=== PATIENT | female | born 1965 | race Caucasian/White ===

== ENCOUNTER 2019-09-24 22:10 | Emergency (ER) | payer MEDICAID ==
[~2019-09-24] VITALS: Ht 160 cm; Wt 81.6 kg
[2019-09-24 22:10] VITALS: BP_SYST 96
--- NOTE | 2019-09-24 22:10 | NUR ---
Pt brought in by ambulance. Pt awake, alert, oriented x4. pt lethargic at time of presentation. EMS states that patient was found unresponsive in home prior to EMS activation after last known well time of 1999. Pt blood sugar was 50 on scene, other vitals were stable. Pt was given D10% en route with increase in LOC prior to arrival. Pt now denies any chest pain, nausea, vomiting, diarrhea, shortness of breath. Pt denies any other medical complaint at this time. VSS, pt resting in ED bed.
--- NOTE | 2019-09-24 22:10 | NUR ---
2155- Pt alfred from home to bed for evaluation
--- NOTE | 2019-09-24 22:40 | NUR ---
Pt resting in ED bed. Awake, alert, oriented. Pt states she has unclear recollection of events, but now feeling better, more alert.
--- NOTE | 2019-09-24 23:17 | NUR ---
Pt moved to bed 2, hooked to cont monitor
[2019-09-24 23:31] LABS: BASOPHILS # (AUTO) 0.2 K/uL (0.0-0.2); BASOPHILS % (AUTO) 1.5 % (0.0-2.0); EOSINOPHILS # (AUTO) 0.2 K/uL (0.0-0.4); EOSINOPHILS % (AUTO) 1.7 % (0.0-4.0); HEMATOCRIT 30.2 % (36-48); LYMPHOCYTES # (AUTO) 1.6 K/uL (1.0-5.5); LYMPHOCYTES % (AUTO) 14.6 % (20.5-51.5); MEAN CORPUSCULAR HEMOGLOBIN 34 pg (27-31); MEAN CORPUSCULAR HGB CONC 33 % (32-36); MEAN CORPUSCULAR VOLUME 103 fL (79.0-98.0); MONOCYTES # (AUTO) 0.8 K/uL (0.0-1.0); MONOCYTES % (AUTO) 7.1 % (1.7-9.3); NEUTROPHILS % (AUTO) 75.1 % (40.0-70.0); PLATELET COUNT (AUTO) 397 K/uL (130-430); RED BLOOD CELL COUNT(AUTO) 2.94 MIL/uL (4.2-6.2); RED CELL DISTRIBUTION WIDTH 16.4 % (9.0-15.0); WHITE BLOOD COUNT (AUTO) 10.7 K/uL (4.8-10.8)
[2019-09-24 23:34] LABS: CALCIUM 8.6 mg/dL (8.4-11.0); CREATININE 1.33 mg/dL (0.55-1.30); POTASSIUM 4.2 mmol/L (3.5-5.1)
[2019-09-24 23:43] LABS: ALBUMIN 2.3 g/dL (3.4-4.8); TOTAL BILIRUBIN 0.3 mg/dL (0.0-1.0)
--- NOTE | 2019-09-25 00:15 | NUR ---
Pt Resting in Ed bed with family member bedside. Pt tolerating IV Fluids well.
--- NOTE | 2019-09-25 00:50 | NUR ---
Pt Given Lunch tray with lunch meats and complex carbohydrates per . Pt able to feed self, no contraindications to diet.
[2019-09-25] MEDS: D10W 250 ML IV SCH ×2 (00:57→00:58)
[2019-09-25 01:05] LABS: BILIRUBIN,URINE NEGATIVE (NEGATIVE); BLOOD, URINE NEGATIVE (NEGATIVE); CLARITY/URINE CLEAR (CLEAR); COLOR,URINE YELLOW (YELLOW); GLUCOSE,URINE NEGATIVE (NEGATIVE); KETONES,URINE NEGATIVE (NEGATIVE); LEUKOCYTE ESTERASE ,URINE TRACE (NEGATIVE); NITRITE, URINE NEGATIVE (NEGATIVE); PROTEIN URINE NEGATIVE (NEGATIVE); UROBILINOGEN,URINE 0.2 (0.2-1.0)
[2019-09-25 01:18] LABS: BACTERIA,URINE FEW /HPF (None Seen); RBC,URINE 0-3 /HPF (0-3)
--- NOTE | 2019-09-25 01:21 | NUR ---
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
[2019-09-25] MEDS ORDERED: CEPHALEXIN 500 MG CAPSULE PO ONE (01:30)
[2019-09-25 01:40] VITALS: BP_SYST 122
== END 2019-09-25 01:40 | disposition home or self-care (01) ==
LOC: SED 22:10
DX: E11.649 Type 2 diabetes mellitus with hypoglycemia without coma (principal); N39.0 Urinary tract infection, site not specified; I10 Essential (primary) hypertension; Z86.73 Personal history of transient ischemic attack (TIA), and cerebral infarction without residual deficits; E87.6 Hypokalemia
CPT/HCPCS: 36415; 80053; 81000-TC; 84484; 85025; 96365; 99284

== ENCOUNTER 2019-12-17 16:28 | Emergency (ER) | payer MEDICAID ==
[~2019-12-17] VITALS: Ht 160 cm; Wt 73.0 kg
[2019-12-17 16:35] VITALS: BP_SYST 109
--- NOTE | 2019-12-17 16:40 | NUR ---
Placed in room 7 . Placed on equipment monitor phototypesetting, blood pressure machine and pulse oximeter. To gown for exam. Side rails up. Addendum: 12/17/19 at 1741 by [email or web address] Amendment undone in EDM - 12/17/19 at 1743 by [email or web address] Correction. L knee pain Addendum: 12/17/19 at 1744 by [email or web address] Correction. L knee pain and swelling.
--- NOTE | 2019-12-17 16:45 | NUR ---
Patient to ER bed 7 to gown for evaluation. Side rails up. Report given to Mac MASSEY.
--- NOTE | 2019-12-17 16:47 | NUR ---
Pt presents to the ER for R knee pain x 4 weeks. Pt has R knee swelling, hx of RA. Pt has not taken any pain medication. Pt rates 05/06. Addendum: 12/17/19 at 1745 by [email or web address] Correction. Left knee pain and swelling
--- NOTE | 2019-12-17 16:50 | NUR ---
ER at bedside examining patient.
[2019-12-17] MEDS ORDERED: KETOROLAC TROMETHAMINE 60 MG/2 ML VIAL IM ONE (17:00)
[2019-12-17 17:36] LABS: BASOPHILS # (AUTO) 0.1 K/uL (0.0-0.2); BASOPHILS % (AUTO) 1.1 % (0.0-2.0); EOSINOPHILS # (AUTO) 0.7 K/uL (0.0-0.4); EOSINOPHILS % (AUTO) 5.7 % (0.0-4.0); HEMATOCRIT 32.8 % (36-48); HEMOGLOBIN 10.6 g/dL (12.0-16.0); LYMPHOCYTES # (AUTO) 1.9 K/uL (1.0-5.5); LYMPHOCYTES % (AUTO) 16.6 % (20.5-51.5); MEAN CORPUSCULAR HEMOGLOBIN 31 pg (27-31); MEAN CORPUSCULAR HGB CONC 32 % (32-36); MEAN CORPUSCULAR VOLUME 96 fL (79.0-98.0); MONOCYTES # (AUTO) 0.6 K/uL (0.0-1.0); MONOCYTES % (AUTO) 5.1 % (1.7-9.3); NEUTROPHILS # (AUTO) 8.3 K/uL (1.8-7.7); NEUTROPHILS % (AUTO) 71.5 % (40.0-70.0); PLATELET COUNT (AUTO) 220 K/uL (130-430); RED CELL DISTRIBUTION WIDTH 15.3 % (9.0-15.0); WHITE BLOOD COUNT (AUTO) 11.6 K/uL (4.8-10.8)
[2019-12-17 17:42] LABS: CALCIUM 9.5 mg/dL (8.4-11.0); CREATININE 1.19 mg/dL (0.55-1.30); POTASSIUM 4.6 mmol/L (3.5-5.1)
[2019-12-17 17:46] LABS: ALBUMIN 3.3 g/dL (3.4-4.8); C-REACTIVE PROTEIN QUANT 7.1 mg/dL (0-0.5); PROTHROMBIN TIME 10.3 SECS (9.5-12.5); TOTAL BILIRUBIN 0.3 mg/dL (0.0-1.0); URIC ACID 8.2 mg/dL (2.4-7.0)
--- NOTE | 2019-12-17 17:52 | NUR ---
system technologist at bedside.
[2019-12-17] MEDS ORDERED: MORPHINE SULFATE 10 MG/ML VIAL IM ONE (18:00)
[2019-12-17] MEDS ORDERED: ONDANSETRON 4 MG ODT TAB PO ONE (18:00)
--- NOTE | 2019-12-17 18:15 | NUR ---
health care sanitary technician at bedside.
[2019-12-17 18:29] LABS: ERYTHROCYTE SEDIMENTATION RATE 81 MM/HR (0-20)
--- NOTE | 2019-12-17 18:30 | NUR ---
ER Dr. TRAN at bedside, procedure of knee fluid aspiration. Asceptic technique used. MELVINA Goetz applied bacitrin to the knee and sterile gauze placed. Patient tolerated well. Given Morphine 10mg/ml prior to procedure.
--- NOTE | 2019-12-17 19:10 | NUR ---
Report given to BRYSON Rajput for continuation of care.
--- NOTE | 2019-12-17 19:10 | NUR ---
ASSUMED CARE OF PT. PT AWAITING RESULTS AND DISPOSITION.
--- NOTE | 2019-12-17 19:15 | NUR ---
PT REPORTS IMPROVED PAIN LEVEL STATED "IT IS GETTING BETTER" REPORTS 7/10 PAIN SCALE AND REPORTS PAIN "TOLERABLE."
[2019-12-17 19:41] LABS: BF APPEARANCE UNSPUN HAZY (CLEAR); BODY FLUID COLOR PINK (LT YELLOW); BODY FLUID TOTAL VOLUME 15 mL; RBC, BODY FLUID 2216 /uL; SOURCE/TYPE ,BODY FLUID SYNOVIAL; WBC, BODY FLUID 2003 /uL
[2019-12-17 19:42] LABS: LYMPHOCYTES, BODY FLUID 22 %; NEUTROPHIL, BODY FLUID 78 %
[2019-12-17 19:44] LABS: BODY FLUID CRYSTALS NO CRYSTALS SEEN (None Seen)
[2019-12-17 20:30] VITALS: BP_SYST 109
--- NOTE | 2019-12-17 20:30 | NUR ---
Patient given written and verbal discharge instructions and verbalizes understanding. DR. REAGAN JIMENEZ MD discussed with patient the results and treatment provided. Patient in stable condition. ID arm band removed. Rx of given. Patient educated on pain management and to follow up with PMD. Pain Scale 2/10. Opportunity for questions provided and answered. Medication side effect fact sheet provided.
== END 2019-12-17 20:30 | disposition home or self-care (01) ==
LOC: SED 16:28
DX: M25.462 Effusion, left knee (principal); I10 Essential (primary) hypertension; E11.9 Type 2 diabetes mellitus without complications; E07.9 Disorder of thyroid, unspecified; I25.2 Old myocardial infarction; E87.6 Hypokalemia
CPT/HCPCS: 20611; 36415; 73560; 76882; 80053; 81025; 82947; 84157 ×2; 84550; 84703; 85025; 85610; 85651; 85730; 86140; 87070; 89051 ×2; 89060; 96372; 99285; J1885; J2270; Q0162; 87205-TC

== ENCOUNTER 2020-04-14 17:45 | Emergency (ER) | payer MEDICAID ==
[~2020-04-14] VITALS: Ht 160 cm; Wt 72.6 kg
[2020-04-14 18:13] VITALS: BP_SYST 116
[2020-04-14] MEDS ORDERED: MORPHINE 2 MG/ML INJ. SYRINGE IM ONE (19:00)
[2020-04-14 20:42] VITALS: BP_SYST 116
== END 2020-04-14 20:30 | disposition home or self-care (01) ==
LOC: SED 17:45
DX: M25.562 Pain in left knee (principal); M25.561 Pain in right knee; I10 Essential (primary) hypertension; E11.9 Type 2 diabetes mellitus without complications; E07.9 Disorder of thyroid, unspecified; E87.6 Hypokalemia; Z87.891 Personal history of nicotine dependence
CPT/HCPCS: 73130; 73564; 96372; 99284; J2270

== ENCOUNTER 2022-01-07 10:00 | Outpatient (CLI) | payer MEDICAID ==
[~2022-01-07] VITALS: Ht 160 cm; Wt 77.1 kg
[2022-01-07 05:30] VITALS: BP_SYST 128
[2022-01-07 07:29] LABS: BILIRUBIN,URINE NEGATIVE (NEGATIVE); COLOR,URINE YELLOW (YELLOW); GLUCOSE,URINE NEGATIVE (NEGATIVE); KETONES,URINE NEGATIVE (NEGATIVE); LEUKOCYTE ESTERASE ,URINE 1+ (NEGATIVE); NITRITE, URINE NEGATIVE (NEGATIVE); PROTEIN URINE 2+ (NEGATIVE); UROBILINOGEN,URINE 0.2 (0.2-1.0)
[2022-01-07 07:34] LABS: BLOOD, URINE TRACE (NEGATIVE); CLARITY/URINE HAZY (CLEAR)
[2022-01-07 08:13] LABS: BACTERIA,URINE MODERATE /HPF (None Seen)
[~2022-01-07 10:00] MED LIST: ACETAMINOPHEN 325 MG TABLET PO PRN; ASPI-1393 PO; BACL10TA PO; BENA-6 PO; BISACODYL 10 MG/SUPPOSITORY RC PRN; BUPIVACAINE LIPOSOME/PF 266 MG/20 ML VIAL INFIL ONE; CARV12.548 PO; CARV6.2554 PO; CYCL10TA24 PO; D5/0.45 NS 1,000 ML IV ONE; FOLI-43 PO; GLIM1TAB18 PO; HYDR12.55 PO; HYDROcodone/ACETAMIN 7.5-325 MG TAB PO PRN; LEVO75TA7 PO; LIP40 PO; LIP80 PO; LISI20TA30 PO; LOP600 PO; LOSA25TA3 PO; METF-379 PO; METF-381 PO; MORPHINE SULFATE 10 MG/ML VIAL IM PRN; NEU300 PO; NOR10 PO; OMEP20CA15 PO; OMEP20TA20 PO; OXYC10TA56 PO; TEMA30CA5 PO; TOFA11TA PO; TRAM100T25 PO
[2022-01-07] MEDS ORDERED: CEFAZOLIN 1 GM IVPB PREMIX 50 ML IV SCH (16:00)
[2022-01-08] MEDS ORDERED: RIVAROXABAN 10 MG TABLET PO SCH (09:00)
== END 2022-01-07 11:00 | disposition home or self-care (01) ==
LOC: SLB 10:00
PROVIDERS: ATTEND Orthopaedic Surgery
DX: Z01.818 Encounter for other preprocedural examination (principal); M17.0 Bilateral primary osteoarthritis of knee; Z20.822 Contact with and (suspected) exposure to COVID-19; M41.34 Thoracogenic scoliosis, thoracic region; I10 Essential (primary) hypertension; E78.5 Hyperlipidemia, unspecified; I25.2 Old myocardial infarction; N39.0 Urinary tract infection, site not specified; M19.079 Primary osteoarthritis, unspecified ankle and foot; M19.049 Primary osteoarthritis, unspecified hand; E11.9 Type 2 diabetes mellitus without complications; E03.9 Hypothyroidism, unspecified; M41.84 Other forms of scoliosis, thoracic region; Z87.891 Personal history of nicotine dependence
CPT/HCPCS: 36415 ×2; 71046; 81000; 82962; 87081; 87086; 87426; U0003; C9290; J0690

== ENCOUNTER 2022-02-04 05:30 | Inpatient (IN) | payer MEDICAID ==
[~2022-02-04] VITALS: Ht 160 cm; Wt 75.7 kg
[~2022-02-04 05:30] MED LIST changes: -ACETAMINOPHEN 325 MG TABLET PO PRN; -BISACODYL 10 MG/SUPPOSITORY RC PRN; -BUPIVACAINE LIPOSOME/PF 266 MG/20 ML VIAL INFIL ONE; -D5/0.45 NS 1,000 ML IV ONE; -HYDROcodone/ACETAMIN 7.5-325 MG TAB PO PRN; -MORPHINE SULFATE 10 MG/ML VIAL IM PRN
[2022-02-04 06:04] LABS: BILIRUBIN,URINE NEGATIVE (NEGATIVE); CLARITY/URINE CLEAR (CLEAR); COLOR,URINE YELLOW (YELLOW); GLUCOSE,URINE NEGATIVE (NEGATIVE); KETONES,URINE TRACE (NEGATIVE); LEUKOCYTE ESTERASE ,URINE 2+ (NEGATIVE); NITRITE, URINE NEGATIVE (NEGATIVE); PH,URINE 5.5 (5.0-8.0); PROTEIN URINE 2+ (NEGATIVE); UROBILINOGEN,URINE 0.2 (0.2-1.0)
[2022-02-04 06:09] LABS: BLOOD, URINE TRACE (NEGATIVE)
[2022-02-04 06:28] LABS: BACTERIA,URINE FEW /HPF (None Seen); RBC,URINE >100 /HPF (0-3); URINE SULFO SALICYLIC ACID NEGATIVE (NEGATIVE); WBC,URINE >100 /HPF (0-3)
[2022-02-04 06:29] LABS: MUCUS,URINE 2+ /LPF (None Seen)
== END 2022-02-04 13:18 | disposition home or self-care (01) | DRG 351 ==
LOC: SMU 05:30
PROVIDERS: ADMIT Orthopaedic Surgery; ATTEND Orthopaedic Surgery
DX: M17.12 Unilateral primary osteoarthritis, left knee (principal); F17.200 Nicotine dependence, unspecified, uncomplicated; M06.9 Rheumatoid arthritis, unspecified; Z96.659 Presence of unspecified artificial knee joint; G89.29 Other chronic pain; Z20.822 Contact with and (suspected) exposure to COVID-19; M25.561 Pain in right knee; Z79.899 Other long term (current) drug therapy
CPT/HCPCS: 36415; 81000; 87081; 87086; U0003

== ENCOUNTER 2022-10-26 22:27 | Emergency (ER) | payer MEDICAID ==
[~2022-10-26] VITALS: Ht 160 cm; Wt 71.7 kg
[~2022-10-26 22:27] MED LIST changes: +FAMO-132 PO; +ONDA-8 TL; +SIME125T69 PO; +SUCR1TAB2 PO
[2022-10-26 23:20] VITALS: BP_SYST 98
--- NOTE | 2022-10-26 23:20 | NUR ---
Triaged and placed patient to ER HALLWAY 2 for evaluation. Report given to HAKEEM RN for continuity of care. Bed placed in lowest position with side rails up. Instructed to notify ED staff for any changes in condition or worsening of symptoms while waiting to be seen by a provider. Patient verbalized understanding.
[2022-10-27] MEDS ORDERED: LOPERAMIDE HCL 2 MG CAPSULE PO ONE
[2022-10-27] MEDS ORDERED: NACL 0.9% 1,000 ML IV ONE
[2022-10-27 00:01] LABS: BASOPHILS % (AUTO) 0.7 % (0.0-2.0); EOSINOPHILS # (AUTO) 0.1 K/uL (0.0-0.4); HEMOGLOBIN 8.9 g/dL (12.0-16.0); LYMPHOCYTES # (AUTO) 1.6 K/uL (1.0-5.5); LYMPHOCYTES % (AUTO) 29.6 % (20.5-51.5); MEAN CORPUSCULAR HEMOGLOBIN 32 pg (27-31); MEAN CORPUSCULAR HGB CONC 34 % (32-36); MEAN CORPUSCULAR VOLUME 92 fL (79.0-98.0); MONOCYTES # (AUTO) 0.6 K/uL (0.0-1.0); MONOCYTES % (AUTO) 11.5 % (1.7-9.3); NEUTROPHILS % (AUTO) 56.2 % (40.0-70.0); PLATELET COUNT (AUTO) 208 K/uL (130-430); RED BLOOD CELL COUNT(AUTO) 2.82 MIL/uL (4.2-6.2); RED CELL DISTRIBUTION WIDTH 14.4 % (9.0-15.0); WHITE BLOOD COUNT (AUTO) 5.3 K/uL (4.8-10.8)
[2022-10-27 00:15] LABS: CALCIUM 8.4 mg/dL (8.4-11.0)
[2022-10-27 00:20] LABS: CREATININE 2.01 mg/dL (0.55-1.30); TOTAL BILIRUBIN 0.2 mg/dL (0.0-1.0)
[2022-10-27] MEDS ORDERED: KCL 20 mEq in 100 mL (PREMIX) 100 ML IV ONE (00:45)
[2022-10-27] MEDS ORDERED: POTASSIUM CHLORIDE 20 MEQ/PKT PACKET PO ONE (00:45)
--- NOTE | 2022-10-27 00:45 | NUR ---
# 20 gauge angiocath placed to RFA. Use of asceptic technique. Opsite placed over site. Blood return noted. Flushed with 10 cc of normal saline. No evidence of infiltration noted. Patient tolerated well.
[2022-10-27] MEDS ORDERED: MORPHINE 4 MG INJ. 4 MG/ML VIAL IVP ONE (01:15)
[2022-10-27] MEDS ORDERED: ONDANSETRON HCL 4 MG/2 ML VIAL IVP ONE (01:15)
--- NOTE | 2022-10-27 01:15 | NUR ---
ER Dr. DUNHAM at bedside examining patient.
--- NOTE | 2022-10-27 01:30 | NUR ---
PT IS AA&OX4. AFEBRILE. NAD. B & B CONTINENT. C/O DIARRHEA LOOSE WATERY STOOL X 1 WK NOW. LAST TIME PT TOOK IMMODIUM WAS YESTERDAY. AMBULATORY W/ STEADY GAIT. SAFE & HAZARD FREE ENVIRONMENT PROVIDED.
[2022-10-27] MEDS ORDERED: OXYC-128 PO (02:59)
[2022-10-27] MEDS ORDERED: LOPE2CAP PO (02:59)
[2022-10-27] MEDS ORDERED: AUG875 PO (02:59)
[2022-10-27] MEDS ORDERED: DICY10CA13 PO (02:59)
[2022-10-27] MEDS ORDERED: AMOXICILLIN/POTASSIUM CLAV 875 MG TABLET PO ONE (03:00)
--- NOTE | 2022-10-27 04:00 | NUR ---
Patient given written and verbal discharge instructions and verbalizes understanding. ER MD discussed with patient the results and treatment provided. Patient in stable condition. ID arm band removed. IV catheter removed intact and dressing applied, no active bleeding. Rx of AUGMENTIN, DICYCLOMINE, LOPERAMIDE, PERCOCEENT, KDUR given. Patient educated on pain management and to follow up with PMD. Pain Scale 0/10. Opportunity for questions provided and answered. Medication side effect fact sheet provided.
[2022-10-27 04:01] VITALS: BP_SYST 133
[2022-10-27] MEDS ORDERED: POTA-197 PO (04:08)
== END 2022-10-27 04:00 | disposition home or self-care (01) ==
LOC: SED 22:27
DX: K57.92 Diverticulitis of intestine, part unspecified, without perforation or abscess without bleeding (principal); K52.9 Noninfective gastroenteritis and colitis, unspecified; D64.9 Anemia, unspecified; E87.6 Hypokalemia; N17.9 Acute kidney failure, unspecified; N28.1 Cyst of kidney, acquired; D35.01 Benign neoplasm of right adrenal gland; M47.896 Other spondylosis, lumbar region; E11.9 Type 2 diabetes mellitus without complications; I10 Essential (primary) hypertension; Z79.899 Other long term (current) drug therapy
CPT/HCPCS: 99285; 80053; 83690; 85025; 36415; 74176; 96365; 96375; 96361; 96366; 76376; J2405; J3480; J2270; J7030

== ENCOUNTER 2022-11-12 13:17 | Emergency (ER) | payer MEDICAID ==
[~2022-11-12] VITALS: Ht 160 cm; Wt 74.4 kg
[~2022-11-12 13:17] MED LIST changes: +AUG875 PO; +DICY10CA13 PO; +LOPE2CAP PO; +OXYC-128 PO; +POTA-197 PO
[2022-11-12 13:59] VITALS: BP_SYST 157
--- NOTE | 2022-11-12 16:30 | NUR ---
Patient to [facility] for evaluation.
--- NOTE | 2022-11-12 16:35 | NUR ---
PATIENT BROUGHT IN BY SELF COMPLAINING OF BLOODY DIARRHEA WITH LLQ ABDOMINAL PAIN. PAIN 4/10
--- NOTE | 2022-11-12 16:44 | NUR ---
ER at bedside examining patient.
[2022-11-12] MEDS ORDERED: metroNIDAZOLE 500 mg/NS 100 ML IV ONE (16:45)
[2022-11-12] MEDS ORDERED: NACL 0.9% 1,000 ML IV ONE (16:45)
--- NOTE | 2022-11-12 17:00 | NUR ---
Blood cultures drawn, prior to administration of antibiotic.
[2022-11-12 17:27] LABS: HEMATOCRIT 33.3 % (36-48); HEMOGLOBIN 11.1 g/dL (12.0-16.0); LYMPHOCYTES % (AUTO) 16.7 % (20.5-51.5); RED BLOOD CELL COUNT(AUTO) 3.55 MIL/uL (4.2-6.2)
[2022-11-12 17:33] LABS: CREATININE 1.62 mg/dL (0.55-1.30)
[2022-11-12 17:38] LABS: BASOPHILS # (AUTO) 0.2 K/uL (0.0-0.2); BASOPHILS % (AUTO) 1.4 % (0.0-2.0); EOSINOPHILS % (AUTO) 7.8 % (0.0-4.0); LYMPHOCYTES # (AUTO) 2.2 K/uL (1.0-5.5); MEAN CORPUSCULAR HEMOGLOBIN 31 pg (27-31); MEAN CORPUSCULAR HGB CONC 33 % (32-36); MEAN CORPUSCULAR VOLUME 94 fL (79.0-98.0); MONOCYTES # (AUTO) 0.6 K/uL (0.0-1.0); MONOCYTES % (AUTO) 4.4 % (1.7-9.3); NEUTROPHILS # (AUTO) 9.2 K/uL (1.8-7.7); NEUTROPHILS % (AUTO) 69.7 % (40.0-70.0); PLATELET COUNT (AUTO) 282 K/uL (130-430); WHITE BLOOD COUNT (AUTO) 13.2 K/uL (4.8-10.8)
[2022-11-12 17:40] LABS: TOTAL BILIRUBIN 0.3 mg/dL (0.0-1.0)
--- NOTE | 2022-11-12 17:50 | NUR ---
# 20 gauge angiocath placed to LAC. Use of asceptic technique. Opsite placed over site. Blood return noted. Flushed with 10 cc of normal saline. No evidence of infiltration noted. Patient tolerated well.
--- NOTE | 2022-11-12 18:32 | NUR ---
PATIENT OUT OF BED TO RESTROOM. AMBULATING WITH STEADY GAIT.
[2022-11-12] MEDS ORDERED: METR-154 PO (20:08)
[2022-11-12] MEDS ORDERED: LEVO750T64 PO (20:08)
--- NOTE | 2022-11-12 21:34 | NUR ---
Patient given written and verbal discharge instructions by DR Soliman and verbalizes understanding. ER MD discussed with patient the results and treatment provided. Patient in stable condition. ID arm band removed. IV catheter removed intact and dressing applied, no active bleeding. Rx of Levaquin,Metronidazole given. Patient educated on pain management and to follow up with PMD. Pain Scale 0/10. Opportunity for questions provided and answered. Medication side effect fact sheet provided.
[2022-11-12 21:36] VITALS: BP_SYST 148
== END 2022-11-12 21:36 | disposition home or self-care (01) ==
LOC: SED 13:17
DX: K52.9 Noninfective gastroenteritis and colitis, unspecified (principal); R10.32 Left lower quadrant pain; E11.9 Type 2 diabetes mellitus without complications; I10 Essential (primary) hypertension; Z79.899 Other long term (current) drug therapy
CPT/HCPCS: 99284; 96365; 96367; 96361; 80053; 85025; 87040; 36415; J1956; J3490; J7030

== ENCOUNTER 2022-11-29 10:05 | Emergency (ER) | payer MEDICAID ==
[~2022-11-29] VITALS: Ht 160 cm; Wt 81.6 kg
[2022-11-29 10:05] VITALS: BP_SYST 133
[~2022-11-29 10:05] MED LIST changes: +LEVO750T64 PO; +METR-154 PO
[2022-11-29 10:55] LABS: BASOPHILS # (AUTO) 0.1 K/uL (0.0-0.2); BASOPHILS % (AUTO) 0.9 % (0.0-2.0); EOSINOPHILS # (AUTO) 0.3 K/uL (0.0-0.4); EOSINOPHILS % (AUTO) 5.6 % (0.0-4.0); HEMATOCRIT 31.6 % (36-48); HEMOGLOBIN 10.5 g/dL (12.0-16.0); LYMPHOCYTES # (AUTO) 2.4 K/uL (1.0-5.5); LYMPHOCYTES % (AUTO) 38.1 % (20.5-51.5); MEAN CORPUSCULAR HEMOGLOBIN 32 pg (27-31); MEAN CORPUSCULAR HGB CONC 33 % (32-36); MEAN CORPUSCULAR VOLUME 95 fL (79.0-98.0); MONOCYTES # (AUTO) 0.6 K/uL (0.0-1.0); MONOCYTES % (AUTO) 9.9 % (1.7-9.3); NEUTROPHILS # (AUTO) 2.8 K/uL (1.8-7.7); NEUTROPHILS % (AUTO) 45.5 % (40.0-70.0); PLATELET COUNT (AUTO) 213 K/uL (130-430); RED BLOOD CELL COUNT(AUTO) 3.32 MIL/uL (4.2-6.2); RED CELL DISTRIBUTION WIDTH 15.6 % (9.0-15.0); WHITE BLOOD COUNT (AUTO) 6.2 K/uL (4.8-10.8)
[2022-11-29 11:11] LABS: ANION GAP 11 (5-15); CALCIUM 8.8 mg/dL (8.4-11.0); CHLORIDE 101 mmol/L (98-107); CREATININE 2.01 mg/dL (0.55-1.30); GFR AFRICAN AMERICAN 33 mL/min (>90); GLUCOSE 103 mg/dL (70-99); UREA NITROGEN, BLOOD 30 mg/dL (8-21)
[2022-11-29 11:16] LABS: ALANINE AMINOTRANSFERASE 25 U/L (12-78); ALBUMIN 3.8 g/dL (3.4-4.8); AMYLASE 106 U/L (0-100); ASPARTATE AMINOTRANSFERASE 18 U/L (10-37); LIPASE 91 U/L (73-393); TOTAL BILIRUBIN 0.4 mg/dL (0.0-1.0)
[2022-11-29 11:17] LABS: C-REACTIVE PROTEIN QUANT < 0.2 mg/dL (0-0.5)
[2022-11-29 11:24] LABS: ACETONE, SERUM NEGATIVE (NEGATIVE)
[2022-11-29 11:30] LABS: INR 0.9 (0.8-1.2); PROTHROMBIN TIME 9.8 SECS (9.5-12.5)
[2022-11-29] MEDS ORDERED: LOM2.5 PO (12:33)
[2022-11-29 12:53] VITALS: BP_SYST 145
== END 2022-11-29 12:51 | disposition home or self-care (01) ==
LOC: SED 10:05
DX: K62.5 Hemorrhage of anus and rectum (principal); R10.30 Lower abdominal pain, unspecified; E11.9 Type 2 diabetes mellitus without complications; I10 Essential (primary) hypertension; Z79.899 Other long term (current) drug therapy
CPT/HCPCS: 36415; 76376; 80053; 82009; 82150; 83605; 83690; 84703; 85025; 85610-TC; 85730-TC; 86140; 99284

== ENCOUNTER 2022-12-12 20:10 | Emergency (ER) | payer MEDICAID ==
[~2022-12-12] VITALS: Ht 160 cm; Wt 79.4 kg
[~2022-12-12 20:10] MED LIST changes: +LOM2.5 PO
[2022-12-12 20:25] VITALS: BP_SYST 134
--- NOTE | 2022-12-12 20:50 | NUR ---
Patient placed in ER BED 2 for evaluation. Bed in lowest position with siderails up. Instructed to notify ED staff for any changes in condition or worsening of symptoms. Patient verbalized understanding.
--- NOTE | 2022-12-12 20:56 | NUR ---
Dr. Rivera at bedside examining the patient.
--- NOTE | 2022-12-12 21:05 | NUR ---
Records Associate at bedside.
[2022-12-12 21:19] LABS: BASOPHILS % (AUTO) 0.6 % (0.0-2.0); EOSINOPHILS # (AUTO) 0.1 K/uL (0.0-0.4); EOSINOPHILS % (AUTO) 1.6 % (0.0-4.0); HEMATOCRIT 31.4 % (36-48); HEMOGLOBIN 10.7 g/dL (12.0-16.0); LYMPHOCYTES % (AUTO) 12.2 % (20.5-51.5); MEAN CORPUSCULAR HEMOGLOBIN 32 pg (27-31); MEAN CORPUSCULAR HGB CONC 34 % (32-36); MEAN CORPUSCULAR VOLUME 94 fL (79.0-98.0); MONOCYTES # (AUTO) 0.5 K/uL (0.0-1.0); MONOCYTES % (AUTO) 5.9 % (1.7-9.3); NEUTROPHILS # (AUTO) 6.5 K/uL (1.8-7.7); NEUTROPHILS % (AUTO) 79.7 % (40.0-70.0); PLATELET COUNT (AUTO) 174 K/uL (130-430); RED BLOOD CELL COUNT(AUTO) 3.33 MIL/uL (4.2-6.2); RED CELL DISTRIBUTION WIDTH 14.6 % (9.0-15.0); WHITE BLOOD COUNT (AUTO) 8.2 K/uL (4.8-10.8)
[2022-12-12 21:49] LABS: ALBUMIN 3.4 g/dL (3.4-4.8); CALCIUM 8.6 mg/dL (8.4-11.0); CREATININE 1.3 mg/dL (0.55-1.30); TOTAL BILIRUBIN 0.3 mg/dL (0.0-1.0)
[2022-12-12 21:49] LABS: BILIRUBIN,URINE NEGATIVE (NEGATIVE); BLOOD, URINE TRACE (NEGATIVE); CLARITY/URINE CLOUDY (CLEAR); COLOR,URINE YELLOW (YELLOW); GLUCOSE,URINE NEGATIVE (NEGATIVE); KETONES,URINE NEGATIVE (NEGATIVE); LEUKOCYTE ESTERASE ,URINE 2+ (NEGATIVE); NITRITE, URINE NEGATIVE (NEGATIVE); PROTEIN URINE 2+ (NEGATIVE); UROBILINOGEN,URINE 0.2 (0.2-1.0)
[2022-12-12 21:55] LABS: BACTERIA,URINE FEW /HPF (None Seen); MUCUS,URINE 2+ /LPF (None Seen); WBC,URINE 20-50 /HPF (0-3)
[2022-12-12 21:56] LABS: OTHER CASTS, URINE WBC CASTS 2+ /LPF (None Seen)
[2022-12-12] MEDS ORDERED: POTASSIUM CHLORIDE 20 MEQ/PKT PACKET PO ONE (22:00)
[2022-12-12 22:17] VITALS: BP_SYST 134
--- NOTE | 2022-12-12 22:18 | NUR ---
Patient given written and verbal discharge instructions and verbalizes understanding. ER MD discussed with patient the results and treatment provided. Patient in stable condition. ID arm band removed. NO Rx given. Patient educated on pain management and to follow up with PMD. Pain Scale 0/10. Opportunity for questions provided and answered. Medication side effect fact sheet provided.
== END 2022-12-12 22:17 | disposition home or self-care (01) ==
LOC: SED 20:10
DX: R19.7 Diarrhea, unspecified (principal); R10.9 Unspecified abdominal pain; E11.9 Type 2 diabetes mellitus without complications; I10 Essential (primary) hypertension; Z87.738 Personal history of other specified (corrected) congenital malformations of digestive system; Z79.899 Other long term (current) drug therapy
CPT/HCPCS: 36415; 80053; 81000; 83690; 85025; 86886; 86900; 86901; 87086; 99283

== ENCOUNTER 2023-05-14 08:18 | Day surgery (SDC) | payer MEDICAID ==
[~2023-05-14] VITALS: Ht 160 cm; Wt 83.9 kg
[~2023-05-14 08:18] MED LIST changes: +DICY-14 PO; -DICY10CA13 PO; +LOSA-412 PO; -LOSA25TA3 PO
[2023-05-14] MEDS ORDERED: MIDAZOLAM HCL 5 MG/5 ML VIAL ONE (09:46)
[2023-05-14] MEDS ORDERED: MEPERIDINE 100 MG INJ. 100 MG/ML VIAL ONE (09:46)
[2023-05-14 10:00] VITALS: O2SAT 98
[2023-05-14 16:30] VITALS: BP_SYST 159; PULSE 53; RESP 12
== END 2023-05-14 11:30 | disposition home or self-care (01) ==
LOC: SDS 08:18 → SMU 08:19 → SDS 11:30
PROVIDERS: ATTEND Internal Medicine Gastroenterology
DX: R19.4 Change in bowel habit (principal); K63.5 Polyp of colon; K57.30 Diverticulosis of large intestine without perforation or abscess without bleeding; K64.9 Unspecified hemorrhoids; E66.9 Obesity, unspecified; K62.5 Hemorrhage of anus and rectum; E78.5 Hyperlipidemia, unspecified; I10 Essential (primary) hypertension; E78.00 Pure hypercholesterolemia, unspecified; E11.9 Type 2 diabetes mellitus without complications; Z87.891 Personal history of nicotine dependence; Z68.30 Body mass index [BMI] 30.0-30.9, adult; Z79.4 Long term (current) use of insulin; Z79.899 Other long term (current) drug therapy
CPT/HCPCS: 45385; 99152; 82962; 88305; G0378; J2250; J2175

== ENCOUNTER 2024-04-06 07:45 | Day surgery (SDC) | payer MEDICAID ==
[~2024-04-06] VITALS: Ht 160 cm; Wt 74.8 kg
[~2024-04-06 07:45] MED LIST changes: -GLIM1TAB18 PO; +GLIM1TAB56 PO
[2024-04-06] MEDS ORDERED: fentaNYL CITRATE/PF 100 MCG/2 ML AMP ONE (08:07)
[2024-04-06] MEDS ORDERED: IOHEXOL 300 mgI/mL, 50 mL INFUS..BTL IV ONE (09:00)
[2024-04-06] MEDS ORDERED: LIDOCAINE MPF 2% 20 MG/1 ML, 5 ML VIAL INH ONE (09:00)
[2024-04-06] MEDS ORDERED: NORMAL SALINE 10 ML VIAL ONE (09:00)
[2024-04-06] MEDS ORDERED: methylPREDNISolone ACETATE 40 MG/ML ONE (09:00)
[2024-04-06 09:30] VITALS: O2SAT 97
[2024-04-06] MEDS: MIDAZOLAM HCL 5 MG/5 ML VIAL IVP ONE ×2 (09:41→09:44)
[2024-04-06] MEDS: MIDAZOLAM HCL 5 MG/5 ML VIAL ONE (09:41)
[2024-04-06 18:05] VITALS: BP_SYST 169; PULSE 73; RESP 17
== END 2024-04-06 11:36 | disposition home or self-care (01) ==
LOC: SDS 07:45 → SMU 07:46 → SDS 11:36
PROVIDERS: ATTEND Internal Medicine
DX: M51.16 Intervertebral disc disorders with radiculopathy, lumbar region (principal); I10 Essential (primary) hypertension; E11.9 Type 2 diabetes mellitus without complications; Z88.5 Allergy status to narcotic agent; Z98.890 Other specified postprocedural states; G89.4 Chronic pain syndrome; Z79.899 Other long term (current) drug therapy
CPT/HCPCS: 62323; 82948; J2250; Q9967; J1010; 76000; J1030; J3010